=== PATIENT | male | born 1965 | race Caucasian/White ===

== ENCOUNTER → 2020-11-15 | Outpatient (CLI) | payer OTHER ==
[~2020-11-15] MED LIST: JARDIANCE25 MG PO; LIPITOR40 MG PO; METFORMIN HCL500 MG PO; PROTONIX40 MG PO; QUINAPRIL-HCTZ1 EACH PO; ST. JOSEPH ASPI81 M1 PO; TOPROL XL 50 MG50 MG PO; ZOLOFT25 MG PO
== END ==
LOC: OPSV2 11:30
DX: Z01.812 Encounter for preprocedural laboratory examination (principal); Z20.822 Contact with and (suspected) exposure to COVID-19

== ENCOUNTER → 2020-12-06 | Day surgery (SDC) | payer OTHER | END | disposition home or self-care (01) | LOC: OR 08:45 | PROVIDERS: Surgery | PROC: 02HV33Z Insertion of Infusion Device into Superior Vena Cava, Percutaneous Approach (ICD-10-PCS; principal; 2020-12-06 08:45) | DX: C41.1 Malignant neoplasm of mandible (principal); I87.8 Other specified disorders of veins; I25.2 Old myocardial infarction; I25.10 Atherosclerotic heart disease of native coronary artery without angina pectoris; E11.9 Type 2 diabetes mellitus without complications; I10 Essential (primary) hypertension; E78.5 Hyperlipidemia, unspecified; Z87.891 Personal history of nicotine dependence; Z79.899 Other long term (current) drug therapy; Z20.822 Contact with and (suspected) exposure to COVID-19; Z95.5 Presence of coronary angioplasty implant and graft | CPT/HCPCS: 71045; 77001; 82962; C1769; C1788; J0690; J1100; J1642; J2250; J2405; J2704; J3010; J7040; J7120 ==

== ENCOUNTER → 2021-03-22 | Outpatient (CLI) | payer OTHER | LOC: CT 12:23 | DX: C05.1 Malignant neoplasm of soft palate (principal); Z51.11 Encounter for antineoplastic chemotherapy | CPT/HCPCS: 70491; 71260; Q9967 ==

== ENCOUNTER → 2021-06-07 | Outpatient (CLI) | payer OTHER ==
[~2021-06-07] MED LIST changes: +LEVOTHYROXINE13 MCG PO
== END ==
LOC: HEART 5 05-24 15:00
DX: R06.00 Dyspnea, unspecified (principal)

== ENCOUNTER → 2021-06-16 | Outpatient (CLI) | payer OTHER ==
[2021-06-16 16:55] LABS: HEMOGLOBIN 13.4 gm/dl (14.0-17.5); RED BLOOD COUNT 4.39 M/UL (4.20-5.50)
== END ==
LOC: LAB 16:10
PROVIDERS: Internal Medicine Interventional Cardiology
DX: I10 Essential (primary) hypertension (principal); E11.9 Type 2 diabetes mellitus without complications; E78.00 Pure hypercholesterolemia, unspecified; R06.00 Dyspnea, unspecified
CPT/HCPCS: 36415; 80048; 85025; 85610; 85730

== ENCOUNTER → 2021-06-28 | Outpatient (CLI) | payer OTHER ==
[2021-06-28 10:00] LABS: BUN/CREATININE RATIO 22 (0-10)
== END ==
LOC: CATH 06:31
PROVIDERS: Internal Medicine Interventional Cardiology
DX: I25.118 Atherosclerotic heart disease of native coronary artery with other forms of angina pectoris (principal); I10 Essential (primary) hypertension; E78.00 Pure hypercholesterolemia, unspecified; E78.5 Hyperlipidemia, unspecified; C76.0 Malignant neoplasm of head, face and neck; E11.9 Type 2 diabetes mellitus without complications; I25.2 Old myocardial infarction; F19.90 Other psychoactive substance use, unspecified, uncomplicated; Z79.84 Long term (current) use of oral hypoglycemic drugs; Z79.899 Other long term (current) drug therapy; Z87.891 Personal history of nicotine dependence
CPT/HCPCS: 36415; 80048; 82962; 85347; 93571; 99152; 99153; C1769; C1887; J0153; J1644; J2250; J3010; J7030; Q9965

== ENCOUNTER → 2021-07-25 | Outpatient (CLI) | payer OTHER ==
[~2021-07-25] MED LIST changes: +METFORMIN ER1000 MG PO
[2021-07-25 17:58] LABS: HEMOGLOBIN 12.5 gm/dl (14.0-17.5); RED BLOOD COUNT 4.22 M/UL (4.20-5.50); WHITE BLOOD COUNT 6.4 K/UL (4.5-11.0)
== END ==
LOC: RT 16:37
PROVIDERS: Internal Medicine Interventional Cardiology
DX: R94.39 Abnormal result of other cardiovascular function study (principal); R06.00 Dyspnea, unspecified; I10 Essential (primary) hypertension; E78.00 Pure hypercholesterolemia, unspecified; E11.9 Type 2 diabetes mellitus without complications
CPT/HCPCS: 36415; 80048; 85025; 85610; 85730; 93005

== ENCOUNTER 2021-08-08 08:39 | Outpatient (CLI) | payer OTHER ==
[~2021-08-08] VITALS: Ht 160 cm; Wt 66.2 kg
[~2021-08-08 08:39] MED LIST changes: -LEVOTHYROXINE13 MCG PO; -METFORMIN ER1000 MG PO; +SYNTHROID50 MCG PO
[2021-08-08] MEDS ORDERED: METFORMIN ER1000 MG PO (09:46)
[2021-08-08 19:44] LABS: HEMOGLOBIN 11.3 gm/dl (14.0-17.5); RED BLOOD COUNT 3.83 M/UL (4.20-5.50); WHITE BLOOD COUNT 6.5 K/UL (4.5-11.0)
[2021-08-08 20:03] LABS: BUN/CREATININE RATIO 16 (0-10)
[2021-08-09] MEDS ORDERED: NITROGLYCERIN0.4 MG SL (10:07)
[2021-08-09] MEDS ORDERED: ISOSORBIDE MONO30 MG PO (10:07)
[2021-08-09] MEDS ORDERED: BRILINTA 90 MG90 MG PO (10:07)
== END 2021-08-09 12:04 | disposition home or self-care (01) ==
LOC: CATH 08:39 → PROG CARE 12:38 → CATH 08-09 12:04
PROVIDERS: Internal Medicine Interventional Cardiology
DX: T82.855A Stenosis of coronary artery stent, initial encounter (principal); I25.118 Atherosclerotic heart disease of native coronary artery with other forms of angina pectoris; I25.82 Chronic total occlusion of coronary artery; E78.5 Hyperlipidemia, unspecified; I10 Essential (primary) hypertension; E11.9 Type 2 diabetes mellitus without complications; C41.1 Malignant neoplasm of mandible; I25.2 Old myocardial infarction; Z87.891 Personal history of nicotine dependence; Z92.21 Personal history of antineoplastic chemotherapy
CPT/HCPCS: 36415; 80048; 82550; 82553; 82962; 85027; 85347; 99152; 99153; C1725; C1769; C1874; C1887; C9600; J1644; J2250; J3010; J7030; J7040; Q9967

== ENCOUNTER 2021-09-17 01:42 | Emergency (ER) | payer OTHER ==
[~2021-09-17 01:42] MED LIST changes: +BRILINTA 90 MG90 MG PO; +ISOSORBIDE MONO30 MG PO; +METFORMIN ER1000 MG PO; +NITROGLYCERIN0.4 MG SL
[2021-09-17 03:35] LABS: HEMOGLOBIN 11.1 gm/dl (14.0-17.5); RED BLOOD COUNT 3.9 M/UL (4.20-5.50); WHITE BLOOD COUNT 9.6 K/UL (4.5-11.0)
== END 2021-09-17 06:28 | disposition home or self-care (01) ==
LOC: ER1 01:42
PROVIDERS: Physician Assistant
DX: U07.1 COVID-19 (principal); E11.9 Type 2 diabetes mellitus without complications; I10 Essential (primary) hypertension; E78.5 Hyperlipidemia, unspecified; J40 Bronchitis, not specified as acute or chronic; E86.0 Dehydration
CPT/HCPCS: 0240U; 71045; 80053; 81001; 85025; 87086; 99283

== ENCOUNTER → 2021-09-19 | Outpatient (CLI) | payer OTHER ==
[~2021-09-19] VITALS: Ht 160 cm; Wt 68.5 kg
== END ==
LOC: EROP 12:52
DX: U07.1 COVID-19 (principal); Z23 Encounter for immunization; I25.10 Atherosclerotic heart disease of native coronary artery without angina pectoris; E11.9 Type 2 diabetes mellitus without complications; I10 Essential (primary) hypertension
CPT/HCPCS: M0247; Q0247